=== PATIENT | female | born 1985 | race Hispanic/Latino ===

== ENCOUNTER 2018-11-20 00:19 | Emergency (ER) | payer MEDICAID ==
[2018-11-20 00:28] VITALS: BMI 27.4
[2018-11-20 00:34] VITALS: RESP 18; TEMP 97.7
--- NOTE | 2018-11-20 00:56 | ED PDOC ---
Arrival/HPI <Mary Ambrose - Last Filed: 11/20/18 03:20> - General Historian: Patient - History of Present Illness Narrative History of Present Illness (Text): 11/20/18 00:54 33 y/o female with no significant PMH presents to the ED with lower back pain for 4 days. It's achy in nature, radiate to the left leg below the knee level, exacerbated with prolonged standing/sitting and activity, relieved with laying in bed. Patient had similar symptoms a year ago that was managed by her PCP. She gets episodic pain since then that is managed with pain meds. She denied fever, chills, focal neurological symptoms, urinary/bowel incontinence, saddle area sensory deficit. She denied chest pain, palpitations, SOB, headache, dizziness, muscle weakness, urinary symptoms, N/V/D 11/20/18 01:03 Time/Duration: < week Symptom Onset: Gradual Symptom Course: Worsening Quality: Aching Severity Level: 9 Context: Sitting, Standing, Exertion <Erick Silverio - Last Filed: 11/20/18 20:01> - General Chief Complaint: Back Pain Time Seen by Provider: 11/20/18 00:40 Past Medical History - Provider Review Nursing Documentation Reviewed: Yes - Travel History Have you recently traveled outside [place] w/in the past 3 mons?: No - Cardiac Hx Cardiac Disorders: No - Pulmonary Hx Respiratory Disorders: No - Neurological Hx Neurological Disorder: No - HEENT Hx HEENT Disorder: No - Renal Hx Renal Disorder: No - Endocrine/Metabolic Hx Endocrine Disorders: No - Hematological/Oncological Hx Blood Disorders: No - Integumentary Hx Dermatological Disorder: No - Musculoskeletal/Rheumatological Hx Musculoskeletal Disorders: Yes Hx Back Pain: Yes (chronic) - Gastrointestinal Hx Gastrointestinal Disorders: No - Genitourinary/Gynecological Hx Genitourinary Disorders: No - Psychiatric Hx Psychophysiologic Disorder: No Hx Substance Use: No - Surgical History Hx Appendectomy: Yes Hx Section: Yes <Erick Silverio - Last Filed: 11/20/18 20:01> Family/Social History - Physician Review Nursing Documentation Reviewed: Yes Family/Social History: No Known Family HX Smoking Status: Never Smoked Hx Alcohol Use: No Hx Substance Use: No <Erick Silverio - Last Filed: 11/20/18 20:01> Allergies/Home Meds <Mary Ambrose - Last Filed: 11/20/18 03:20> <Erick Silverio - Last Filed: 11/20/18 20:01> Allergies/Adverse Reactions: Allergies No Known Allergies Allergy (Verified 11/20/18 00:57) Review of Systems - Physician Review All systems were reviewed & negative as marked: Yes - Review of Systems Constitutional: Normal Eyes: Normal ENT: Normal Respiratory: Normal. absent: SOB, Cough Cardiovascular: Normal Gastrointestinal: Normal. absent: Abdominal Pain, Nausea, Vomiting Genitourinary Female: Normal Musculoskeletal: Back Pain, Myalgias Skin: Normal Neurological: Normal. absent: Headache, Dizziness, Focal Weakness, Gait Changes, Speech Changes Endocrine: Normal Hemo/Lymphatic: Normal Psychiatric: Normal <Jean ClaudeErick - Last Filed: 11/20/18 20:01> Physical Exam Vital Signs Temp Pulse Resp BP Pulse Ox 11/20/18 00:34 97.7 F 73 18 120/67 98 <Mary Ambrose - Last Filed: 11/20/18 03:20> Vital Signs Reviewed: Yes Vital Signs Temp Pulse Resp BP Pulse Ox 11/20/18 00:34 97.7 F 73 18 120/67 98 Temperature: Afebrile Blood Pressure: Normal Pulse: Regular Respiratory Rate: Normal Appearance: Positive for: Well-Appearing, Non-Toxic, Comfortable Pain Distress: Moderate Mental Status: Positive for: Alert and Oriented X 3 - Systems Exam Head: Present: Atraumatic, Normocephalic Pupils: Present: PERRL Extroacular Muscles: Present: EOMI Conjunctiva: Present: Normal Ears: Present: Normal Mouth: Present: Moist Mucous Membranes Pharnyx: Present: Normal Neck: Present: Normal Range of Motion. No: JVD, Bruit Respiratory/Chest: Present: Clear to Auscultation, Good Air Exchange. No: Respiratory Distress, Wheezes, Rhonchi <BensawErick - Last Filed: 11/20/18 20:01> Medical Decision Making - RAD Interpretation Radiology Orders: 11/20/18 01:15 LS SPINE AP/LAT [RAD] Stat - Medication Orders Current Medication Orders: Discontinued Medications Ketorolac Tromethamine (Toradol) 30 mg IM STAT STA Stop: 11/20/18 01:15 Last Admin: 11/20/18 01:25 Dose: 30 mg MAR Pain Assessment Document 11/20/18 01:25 CNR (Rec: 11/20/18 01:25 CNR [id number]) Pain Reassessment Is this a pain reassessment? No IM Administration Charges Document 11/20/18 01:25 CNR (Rec: 11/20/18 01:25 CNR [id number]) Injection Site MAR Injection Site Left Deltoid Charges for Administration # of IM Administrations 1 <Mary Ambrose - Last Filed: 11/20/18 03:20> Disposition/Present on Arrival - Present on Arrival Any Indicators Present on Arrival: No History of DVT/PE: No History of Uncontrolled Diabetes: No Urinary Catheter: No History of Decub. Ulcer: No History Surgical Site Infection Following: None - Disposition Have Diagnosis and Disposition been Completed?: Yes Disposition Time: 03:20 Patient Plan: Discharge <Mary Ambrose - Last Filed: 11/20/18 03:20> - Present on Arrival Any Indicators Present on Arrival: No History of DVT/PE: No History of Uncontrolled Diabetes: No Urinary Catheter: No History of Decub. Ulcer: No History Surgical Site Infection Following: None - Disposition Have Diagnosis and Disposition been Completed?: Yes Patient Plan: Discharge <Erick Silverio - Last Filed: 11/20/18 20:01> - Disposition Diagnosis: Lumbar strain Disposition: HOME/ ROUTINE Condition: STABLE Discharge Instructions (ExitCare): Lumbar Muscle Strain (DC) Additional Instructions: ALAN BO, thank you for letting us take care of you today. Your provider was Mary Ambrose MD and you were treated for BACK PAIN. The emergency medical care you received today was directed at your acute symptoms. If you were prescribed any medication, please fill it and take as directed. It may take several days for your symptoms to resolve. Return to the Emergency Department if your symptoms worsen, do not improve, or if you have any other problems. Please contact your doctor in 1-2 days for a follow up appointment. Bring any paperwork you were given at discharge with you along with any medications you are taking to your follow up visit. Our treatment cannot replace ongoing medical care by a primary care provider outside of the emergency department. [facility] your care today. If you had an X-Ray or CT scan: A Radiologist will review the ED reading if any change in treatment is needed we will contact you. If you had a blood, urine, or wound culture: It will take several days for the results, if any change in treatment is needed we will contact you. If you had an STI test: It will take 48 hours for the results. Please call after 1 week if you have not heard back. Prescriptions: Cyclobenzaprine [Flexeril] 5 mg PO TID PRN #20 tab PRN Reason: Muscle Spasm Naproxen [Naprosyn] 500 mg PO BID PRN #30 tablet PRN Reason: Pain, Moderate (4-7) Referrals: Pablo Velásquez MD [Primary Care Provider] - Follow up with primary Forms: [employer] (Chinese), WORK NOTE
[2018-11-20 04:33] VITALS: BP 116/71; PULSE 70; O2SAT 97
--- NOTE | 2018-11-20 11:03 | RAD ---
Date of service: 11/20/2018 PROCEDURE: Radiographs of the Lumbar Spine. HISTORY: BACK PAIN COMPARISON: No prior. FINDINGS: BONES: Normal alignment. No listhesis. No fracture. DISC SPACES: Disc degeneration at L5-S1 OTHER FINDINGS: None. 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
== END 2018-11-20 04:24 | disposition home or self-care (01) ==
LOC: MERGE 00:19 → ED 00:19
DX: S39.012A Strain of muscle, fascia and tendon of lower back, initial encounter (principal); X58.XXXA Exposure to other specified factors, initial encounter
CPT/HCPCS: 72100; 81025; 96372; 99283; J1885